=== PATIENT | male | born 1985 | race African-American/Black ===

== ENCOUNTER 2017-07-02 06:19 | Emergency (ER) | payer SELFPAY ==
[~2017-07-02] VITALS: Ht 195.6 cm; Wt 86.8 kg
[2017-07-02 06:20] VITALS: BP 131/78
[2017-07-02] MEDS ORDERED: DIPH,PERTUSS(ACELL),TET VAC/PF 0.5 ML IM-VACC ONE ×2 (06:41→07:00)
== END 2017-07-02 07:35 | disposition home or self-care (01) ==
LOC: ED 07:10
DX: S61.012A Laceration without foreign body of left thumb without damage to nail, initial encounter (principal); F17.200 Nicotine dependence, unspecified, uncomplicated; X58.XXXA Exposure to other specified factors, initial encounter; Y93.89 Activity, other specified; Y92.89 Other specified places as the place of occurrence of the external cause; Y99.8 Other external cause status
CPT/HCPCS: 90471; 90715